=== PATIENT | female | born 1945 | race Caucasian/White ===

== ENCOUNTER 2017-02-14 06:10 | Inpatient (IN) | payer MEDICARE, BC ==
--- NOTE | 2017-02-05 00:53 | HP ---
HISTORY AND PHYSICAL: DATE OF SURGERY: 02/14/17 ATTENDING PHYSICIAN: Dr. Leon * (DICTATED BY GABRIELLE PONCE) PROCEDURE: Left total shoulder replacement. CHIEF COMPLAINT/REASON FOR VISIT: Left-sided osteoarthritis. HISTORY OF PRESENT ILLNESS: Ms. Dyson is a very pleasant 71-year-old female, who presents today for history and physical examination prior to undergoing a left total shoulder replacement on 02/14/[address] Leon. In brief, the patient has had a longstanding history of osteoarthritis of his shoulder and has failed conservative methods such as steroid injections, NSAIDs, and activity and has elected to undergo a left total shoulder replacement by Dr. Leon. PAST MEDICAL HISTORY: Positive for: 1. Osteoarthritis, left shoulder. 2. Insomnia. PAST SURGICAL HISTORY: 1. Left carpal tunnel surgery approximately 20 years ago. 2. Tonsils and adenoids. 3. Appendectomy as a child. MEDICATIONS: 1. Ambien 5 mg 1 tablet p.o. q.h.s. p.r.n. 2. Ibuprofen 600 mg 1 tablet p.o. daily p.r.n. 3. Trazodone 50 mg 1 tablet q.h.s. p.r.n. ALLERGIES: No known drug allergies. FAMILY MEDICAL HISTORY: Father due to pulmonary embolism with history of CAD. Mother due to colon cancer, at age 94. SOCIAL HISTORY: The patient is retired. She is a former smoker and denies IV drug use. She is currently and living with her spouse. Approximately 1 to 2 glasses of faiza in the evening. REVIEW OF SYSTEMS: General: Negative for fevers, chills, or night sweats. No difficulty with anesthesia. HEENT: Negative for headache, lightheadedness, or syncopal episodes. Integument: Negative for abrasions, lesions. No open wounds or sores. Cardiothoracic: Negative for chest pain, palpitations, or edema. Negative for hypertension. Pulmonary: Negative for shortness of breath , cough, or COPD. GI: Negative for nausea, vomiting, constipation, diarrhea, or GERD. : Negative for nocturia, urinary frequency, urgency. No history of UTIs or kidney problems. Musculoskeletal: Positive for left shoulder osteoarthritis. Positive for right shoulder arthritis. Positive for right ____ __ osteoarthritis. Neuro: Negative for paresthesias, numbness. No history of seizure, stroke, or epilepsy. Endocrine: Negative for diabetes. Negative for thyroid disease. Hematologic: Negative for easy bruising, anemia. No excessive bleeding. No history of DVTs or PEs. Infectious Disease: No history of MRSA, VRE, hepatitis, or HIV. PHYSICAL EXAMINATION GENERAL: Well appearing, no acute distress. Alert and oriented female, appearing younger than stated age. VITAL SIGNS: Height 65 inches, weight 154 pounds. Blood pressure 124/66, respirations 18, temperature 97.7. BMI 25.6. HEENT: Normocephalic, atraumatic. EOMI. PULMONARY: Clear to auscultation bilaterally. No crackles, rhonchi, or wheezes. CARDIAC: Regular rate and rhythm. No murmurs, gallops, or rubs. ABDOMEN: Soft, nontender, nondistended. Negative CVA tenderness bilaterally. NEUROLOGIC: Alert and oriented x3. Cranial nerves grossly intact. Sensation intact to bilateral touch in lower and upper extremities. MUSCULOSKELETAL: Left side with diffuse tenderness to palpation throughout the shoulder joints, increased in the anterior position. Elementary Math Tutor strength equal bilaterally, although strength with flexion and extension equal bilaterally. Good strength with adduction; however, decreased strength with abduction on the left, approximately 3/5 compared to the right. Shoulder range of motion, forward flexion to approximately 130 degrees, abduction to roughly 90 degrees. Radial ulnar pulses 2+ bilaterally. Sensation intact to light touch from fingers up to shoulder. ASSESSMENT: Osteoarthritis on the left shoulder. PLAN: The patient has elected to undergo a left total shoulder replacement due to increase in pain and decrease in function. She underwent preoperative clearance by her family practitioner, Vanessa Dunlap and was cleared for surgery. She had no other questions or concerns with regards to today's examination; however, will follow up with us if any do arise. GABRIELLE PONCE [id number]/[facility] #: [id number] [place]
[~2017-02-14 06:10] MED LIST: Buffered Lidocaine 0.9% SYRIN* 5 ML/SYR SYRINGE INTRADERM ONE; Dexamethasone IV* 4 MG/ML 1 ML (4 MG) IV SLOW PU ONE; Famotidine IV* 10 MG/ML 2 ML (20 mg) IV ONE
[2017-02-14] MEDS ORDERED: Buffered Lidocaine 0.9% SYRIN* 5 ML/SYR SYRINGE ONE (06:28)
[2017-02-14] MEDS ORDERED: ceFAZolin 2 GM PREMIX (*) 2 GM/50 ML BAG IVPB ONE (06:28)
[2017-02-14] MEDS ORDERED: Dexamethasone IV* 4 MG/ML 1 ML (4 MG) ONE (06:28)
[2017-02-14] MEDS ORDERED: Famotidine IV* 10 MG/ML 2 ML (20 mg) ONE (06:28)
[2017-02-14] MEDS ORDERED: Rocuronium* 10 MG/ML VIAL ONE (06:47)
[2017-02-14] MEDS ORDERED: Midazolam* 1 MG/ML 2 ML VIAL (2 MG) ONE (06:47)
[2017-02-14] MEDS ORDERED: Propofol* 10 MG/ML 20 ML BTL IV PUSH ONE (06:47)
[2017-02-14] MEDS ORDERED: fentaNYL* 50 MCG/ML 2 ML VIAL (100 MCG VIAL) ONE ×2 (06:47→09:18)
[2017-02-14] MEDS ORDERED: Lidocaine 2% PF * 5 ML VIAL ONE (06:47)
[2017-02-14] MEDS ORDERED: ROPIVACAINE 5 MG/ML 30 ML BTL (0.5%) ONE (06:52)
[2017-02-14] MEDS ORDERED: Bupivacaine 0.25% SDV* 30 ML ONE (07:17)
[2017-02-14] MEDS ORDERED: Bupivacaine 0.5% SDV PF* 30 ML VIAL ONE (07:17)
[2017-02-14] MEDS ORDERED: Lidocaine 1% MPF wEPI 200,000* 30 ML SDV ONE (07:27)
[2017-02-14] MEDS ORDERED: EPHEDrine (Pressors)* 50 MG/ML VIAL ONE (07:54)
[2017-02-14] MEDS ORDERED: Phenylephrine IV* 40 MCG/ML 10 ML SYRINGE ONE (07:57)
[2017-02-14] MEDS ORDERED: Phenylephrine INJ* 10 MG/ML 1 ML VIAL (10 MG) ONE (08:09)
[2017-02-14] MEDS ORDERED: PROCHLORPERAZINE INJ 5 MG/ML 2 ML VIAL IV PRN (08:42)
[2017-02-14] MEDS ORDERED: fentaNYL* 50 MCG/ML 2 ML VIAL (100 MCG VIAL) IV PRN (08:42)
[2017-02-14] MEDS ORDERED: oxyCODONE/Acetamin 5/325 MG* TAB PO PRN (08:42)
[2017-02-14] MEDS ORDERED: HYDROcodone/ACETAMIN 5-325 MG* 1 TAB PO PRN (08:42)
[2017-02-14] MEDS ORDERED: Ondansetron INJ* 2 MG/ML VIAL ONE (09:19)
[2017-02-14] MEDS ORDERED: Metoprolol Tartrate IV* 1 MG/ML 5 ML VIAL ONE (09:55)
[2017-02-14] MEDS ORDERED: Ondansetron TAB* 4 MG PO PRN (11:16)
[2017-02-14] MEDS ORDERED: Morphine INJ* 4 MG/ML 1 ML CARPUJECT IV PRN (11:16)
[2017-02-14] MEDS ORDERED: diPHENhydraMINE IV* 50 MG/ML 1 ml VIAL (BENADRYL) IV PRN (11:16)
[2017-02-14] MEDS ORDERED: Ondansetron INJ* 2 MG/ML VIAL IV PRN (11:16)
[2017-02-14] MEDS ORDERED: Acetaminophen TAB* 325 MG PO PRN (11:16)
[2017-02-14] MEDS ORDERED: Polyethylene Glycol 3350* 17 GM PACKET PO PRN (11:16)
[2017-02-14] MEDS ORDERED: Bisacodyl SUPP* 10 MG SUPP PR PRN (11:16)
[2017-02-14] MEDS ORDERED: Magnesium Hydroxide LIQ* 30 ML UDC PO PRN (11:16)
[2017-02-14] MEDS ORDERED: traZODone TAB* 50 MG TAB PO PRN (11:16)
--- NOTE | 2017-02-14 12:34 | RAD ---
INDICATION: Status post total left shoulder replacement surgery. TECHNIQUE: 2 views of the left shoulder were obtained. FINDINGS: The patient is status post total left shoulder replacement surgery. The bones and prostheses are in normal alignment. No fracture is seen. IMPRESSION: STATUS POST TOTAL LEFT SHOULDER REPLACEMENT SURGERY.
[2017-02-14] MEDS: D5W 1/2 NS 1000 ML BAG* 1,000 ML IV SCH ×2 (13:26→23:59)
[2017-02-14] MEDS: ceFAZolin 1 GM VIAL(*) 1 GM in NS 0.9% 50 ML* 50 ML IVPB SCH (16:38)
[2017-02-14] MEDS ORDERED: guaiFENesin LIQ* 100 MG/5 ML UDC PO PRN (18:56)
[2017-02-14] MEDS ORDERED: Zolpidem TAB* 5 MG PO PRN (19:21)
[2017-02-14] MEDS: Docusate CAP* 100 MG PO SCH (20:58)
[2017-02-14] MEDS: Ferrous Sulfate TAB* 325 MG PO SCH (20:58)
[2017-02-15] MEDS: ceFAZolin 1 GM VIAL(*) 1 GM in NS 0.9% 50 ML* 50 ML IVPB SCH ×2 (00:10→08:15)
[2017-02-15] MEDS: oxyCODONE TAB* 5 MG TAB PO PRN ×4 (01:57→18:26)
--- NOTE | 2017-02-15 02:19 | CONS ---
HOSPITAL MEDICINE CONSULTATION REPORT: DATE OF CONSULT: 02/14/17 ATTENDING PHYSICIAN: Dr. Leon. CONSULTING PHYSICIAN: Dr. Giovana Lea (dictation provided by Shantel Dasilva NP) . REASON FOR CONSULT: Chest congestion. HISTORY OF PRESENT ILLNESS: Ms. Dyson is a 71-year-old female with past medical history of shoulder osteoarthritis, who presents to the hospital today for a planned left total shoulder replacement with Dr. Leon. Please see dictated H and P from GABRIELLE Ceron, for complete details. In brief, the patient had ongoing pain and failed conservative measures and therefore opted for shoulder replacement. In the postoperative period, nursing staff had noted that the patient complained of chest congestion and cough and therefore Hospital Medicine was called regarding consultation. The patient states that she is doing quite well. She does confirm that she feels congestion in her chest but she is coughing well and bringing up clear to white sputum. She reported that prior to coming in for surgery that she has had no acute illnesses , without cough, chest pain, etc. She has no history of coronary artery disease , no history of COPD, asthma, or recent lung infections. PAST MEDICAL HISTORY: 1. Osteoarthritis, left shoulder. 2. Insomnia. PAST SURGICAL HISTORY: 1. Left carpal tunnel surgery approximately 20 years ago. 2. Tonsils and adenoids removed. 3. Appendectomy as a child. MEDICATIONS: Outpatient are: 1. Ambien 5 mg 1 tab p.o. q.h.s. p.r.n. 2. Ibuprofen 600 mg 1 tab p.o. daily p.r.n. 3. Trazodone 50 mg 1 tab q.h.s. p.r.n. ALLERGIES: No known drug allergies. FAMILY HISTORY: Her father did have a pulmonary embolism and he had a history of coronary artery disease. Mother due to colon cancer at the age of 94. SOCIAL HISTORY: The patient is a former smoker, very long time ago. She denies any history of illicit drug use. She drinks 1 to 2 glasses of faiza in the evenings. REVIEW OF SYSTEMS: General: No fevers, chills, or unintended weight loss. Cardiac: No chest pain or edema. Respiratory: Positive for cough, positive for feeling of chest congestion. No shortness of breath. GI: No nausea, vomiting, diarrhea, abdominal pain. : No gross hematuria, dysuria. Neuro: No focal weakness or sensory loss. Eyes: No visual complaints. ENT: No dysphagia. Musculoskeletal: No arthralgias or myalgias. Skin: No rashes, lesions. Psych: No depression or anxiety. PHYSICAL EXAM: Vital Signs: Temperature 97.3, pulse rate 97, respiratory rate 16, O2 saturations 94% on room air, blood pressure 96/54. General: Ms. Dyson is sitting up in the bed. She is in no acute distress. Neuro: She is alert. She is oriented x3. She moves all extremities equally. There is no facial asymmetry or focal weakness. Extraocular movements are intact. Heart: S1, S2. No murmur, rub, or gallop and regular. Lungs are clear to auscultation bilaterally with no accessory muscle use and good aeration. Abdomen: Soft, nontender with bowel sounds positive x4. Extremities: No cyanosis or edema. Skin: Intact. LABORATORY DATA: Preoperatively on 01/28/17, sodium 140, potassium 4.4, chloride 105, serum bicarbonate 27, BUN 17, creatinine 1.00, glucose 89. WBC 5.0, hemoglobin 14.7, hematocrit 43, and platelet count 231. IMPRESSION AND PLAN: Ms. Dyson is a 71-year-old female with no significant past medical history, who presents today to the hospital for a planned left total shoulder replacement. In the immediate postoperative period, she has had chest congestion and Hospital Medicine was called regarding consultation. Our recommendations are as follows: 1. Status post left total shoulder replacement. Management, we will leave it to Ortho. 2. Chest congestion. The patient seems to have a very mild chest congestion. Her lungs are clear to auscultation. She has no fever. She is not tachypneic. She is not hypoxic. She states that she feels that she is able to mobilize clear to white sputum. Our plan is to add guaifenesin p.r.n. 3. DVT prophylaxis. Per Ortho. 4. Code status. Full code. TIME SPENT: Approximately 45 minutes was spent in the consultation of this patient, more than half the time was spent with patient at the bedside reviewing the events leading thus far during the hospitalization, performing physical examination, reviewing my plan of care. SHANTEL VINAYAK, WATER POLLUTION SCIENTIST [id number]/[facility] #: [id number] [place]
--- NOTE | 2017-02-15 04:00 | OP ---
DATE OF OPERATION: 02/14/17 - ROOM #343 DATE OF : 47 SURGEON: Sean Leon MD ASSISTANTS: 1. Taylor Brumfield RPA 2. GABRIELLE Willams ANESTHESIOLOGIST: Lizbeth Fallon MD ANESTHESIA: Regional and general. PRE-OP DIAGNOSIS: Osteoarthritis, left shoulder. POST-OP DIAGNOSIS: Osteoarthritis, left shoulder. OPERATIVE PROCEDURE: Left total shoulder arthroplasty. INDICATIONS: Ms. Dyson is a 71-year-old female who has had a long history of troubles with her left shoulder. It initially had been much lower level where she had still been able to do activities specifically gardening, but this past summer, the shoulder had really become quite limiting as with just normal ADLs. She had such pain that she could not sleep at night, and all of this was quite limiting. She had been treated conservatively with anti-inflammatories as well as a steroid injection, but did not get lasting relief with this. I discussed with her that total shoulder arthroplasty should work well to decrease her pain and improve her function. Risks of surgery such as infection , scar formation, stiffness, continued pain, hardware failure, and neurovascular injury were some of the risks discussed. She had been declared medically optimized and wished to proceed. ESTIMATED BLOOD LOSS: 50 cc. COMPLICATIONS: None. HARDWARE: [employer] small glenoid with 2 screws, 19-mm stem medium trauma body with 44-mm head. DESCRIPTION OF PROCEDURE: The patient had a block placed in the holding area and was brought to the OR. General anesthesia was then established. She was then sat up in a beach chair position, care was taken to ensure that her right arm was nicely padded and that the cubital tunnel was nice and free. Left shoulder area was prepped and then draped. Skin running from the coracoid process down towards the humerus was then infiltrated using a 50:50 mixture of 0.5% Marcaine with 1% lidocaine with epinephrine. Incision was made and was carried down through the skin and subcutaneous tissues. Small bleeders encountered were ligated using electrocautery. Blunt dissection was carried down to the deltoid and full thickness skin flaps were raised. Coming a little medially, it could be seen her cephalic vein and fat stripe could be seen and dissection was carried down that way. Vein ended up being carried laterally, but during the reaming, there was some bleeding from the vein and vein was suture ligated. Nice exposure anteriorly was obtained and some of the bursal tissue was taken down. Trapezius strap muscles were then freed a little bit and it could be seen where she had the three sisters coming upwards, which I believe delineated the inferior border of her subscapularis tendon. Bicipital groove was identified and then taking an osteotome, a flake of bone was taken, lifting most of the subscap attachment and peeling back. The sac gave nice exposure to the humeral head. Four #2 Ethibond sutures were placed and Metzenbaum scissors was used to help free the rotator cuff some until I had a nice balance. With taking down the rotator cuff attachment, the capsule came with that and the shoulder joint opened quite nicely. She had the large osteophyte inferiorly and rather than start to release capsule, I came where there was clearly osteophyte and started to resect osteophyte from the anterior inferior aspect, I then came around this way, so that this actually gave me quite a bit of flexibility along the inferior capsule so that I did not have to release or push much inferiorly as her spur was over 2 cm in size. This came all around, all the way towards the back side. Awl was then used to open the very top of the head and intramedullary guide was placed. Outrigger was assembled and adjusted until it appeared we have taken nice cut from the humeral head. Arm was set at 30 degrees and cutting guide was pinned into place. Intramedullary guide was removed and head was nicely resected. It could be seen where there was still osteophyte present and this was nibbled down along the proximal humerus. End cap was placed and pickle fork was then placed behind the glenoid as well as the tab by the front and nice exposure was obtained. Dustin was used to grasp the labrum and labrum was sharply taken down posteriorly, which gave me exposure from the back to the front and I could easily feel from top to bottom. Guide was placed and it felt like I was nicely in the center and guidewire was placed. Guidewire was perhaps a millimeter high , but I thought this was good as there was probably a spur inferiorly on the glenoid. Drill was run and nice bony recess was obtained and a reamer was also run along with the drill. Small glenoid was called for and impacted into place. It was nicely seated. Drill holes were run and a 20-mm screw was placed superiorly and inferiorly and a wonderful bite was obtained with both. Polyethylene liner was then snapped into place. Attention was returned to the proximal humerus. Positioning was difficult and without the 2 assistants, the case would not have been possible. Taylor Brumfield and Tabitha Deandre were present from the beginning, helping with draping and were essential for positioning and implantation of the implants. They were also there through closure as well. Eventually, we were able to get good exposure so that I could get the reamers to come downwards along the shaft and I had templated her for about a 15, but the 15 still countersunk some. I continued upwards until I had a little bit of chatter and the 19 broach seemed to have the nice bite along with some chatter. Medium trauma body along with a 19-mm finned stem was then impacted into place. She was then trialed with a 44-mm head and I liked her stability as well as her motion. 44-mm head was then impacted into place. Shoulder was copiously pulse lavaged. Long head of the biceps had been preserved through the case and was replaced down into the bicipital groove. Rotator cuff was repaired back to where I had taken the flake of bone off anteriorly and several additional #2 Ethibond sutures were placed to close the rotator interval as well. She was nice and stable and I could shift her nicely and bring the arm up and with external rotation, rotator cuff did not strain at all. Wound was again copiously pulse lavaged. Deltopectoral fascia was loosely reapproximated using 2-0 Vicryl sutures and this was when the cephalic vein was sewn in. The wound was again copiously pulse lavaged and subcutaneous tissues were reapproximated using 2-0 Vicryl, skin was closed using a running Monocryl. Sterile dressing and a sling were applied in the OR. The patient had the LMA removed in the OR, was stable on transfer to the recovery room. [id number]/[facility] #: [id number] [place]
[2017-02-15] MEDS: oxyCODONE/Acetamin 5/325 MG* TAB PO PRN ×4 (04:59→20:20)
[2017-02-15 05:39] LABS: Hematocrit 30 % (35-47); Hemoglobin 10.3 g/dl (12.0-16.0)
[2017-02-15 05:53] LABS: BUN/Creatinine Ratio 17.6 (8-20); Calcium 8.1 mg/dL (8.6-10.3); EGFR African American 99.8 (>60); EGFR Non-African American 77.6 (>60); Potassium 3.8 mmol/L (3.5-5.0)
--- NOTE | 2017-02-15 08:11 | PN ---
Progress Note - Progress Note Date of Service: 02/15/17 SOAP: Subjective: []Patient seen at bedside while working with physical therapy. Her pain is well controlled. Denies chest pain, SOB, dizziness or nausea. The sensation that "something was stuck in her chest" has resolved entirely and she was seen by the hospitalist service last night. Objective: [] Vital Signs Temp 98.1 F 02/15/17 07:11 Pulse 92 02/15/17 07:11 Resp 20 02/15/17 07:20 BP 102/57 02/15/17 07:11 Pulse Ox 99 02/15/17 07:20 Intake & Output 02/14/17 02/15/17 02/15/17 18:59 06:59 18:59 Intake Total 2170 1820 Output Total 900 Balance 2170 920 Intake: IV Fluids 205 980 D5W 03/22 NS 980 LR 2000 NS 50ML, Cefazolin 2G 50 Oral 120 840 Output: Urine 900 Other: Estimated Void Medium # Voids 1 Laboratory Last Values Hgb 10.3 g/dl (12.0-16.0) L 02/15/17 04:37 Hct 30 % (35-47) L 02/15/17 04:37 INR (Anticoag Therapy) 0.85 (0.89-1.11) L 02/14/17 06:37 APTT 27.4 seconds (26.0-36.3) 02/14/17 06:37 Sodium 136 mmol/L (133-145) 02/15/17 04:37 Potassium 3.8 mmol/L (3.5-5.0) 02/15/17 04:37 Chloride 107 mmol/L (101-111) 02/15/17 04:37 Carbon Dioxide 24 mmol/L (22-32) 02/15/17 04:37 Anion Gap 5 mmol/L (2-11) 02/15/17 04:37 BUN 13 mg/dL (6-24) 02/15/17 04:37 Creatinine 0.74 mg/dL (0.51-0.95) 02/15/17 04:37 Est GFR ( Amer) 99.8 (>60) 02/15/17 04:37 Est GFR (Non-Af Amer) 77.6 (>60) 02/15/17 04:37 BUN/Creatinine Ratio 17.6 (8-20) 02/15/17 04:37 Glucose 155 mg/dL (70-100) H 02/15/17 04:37 Calcium 8.1 mg/dL (8.6-10.3) L 02/15/17 04:37 General:Well appearing, no acute distress LUE: Sensation intact to light touch throughout, notes slight decrease in sensation of 4th and 4th digits. Motor function intact throughout digits. Brisk capillary refill distally. Radial pulse 2+. Dressing CDI. Assessment: []s/p left total shoulder 02/14 Dr Leon Plan: []PT/OT Sling at all times aside from gentle passive ROM, pendulum Heparin in house, ASA BID at home Hosp consult for chest congestion complete.
[2017-02-15] MEDS: Ferrous Sulfate TAB* 325 MG PO SCH ×2 (08:14→20:18)
[2017-02-15] MEDS: Vitamin THERAPEUTIC TAB PO SCH (08:14)
[2017-02-15] MEDS: Docusate CAP* 100 MG PO SCH ×2 (08:14→20:18)
[2017-02-15] MEDS: Heparin VIAL(*) 5000 UNITS/ML VIAL (FIVE THOUSAND) SUBCUT SCH ×2 (15:25→21:37)
[2017-02-16] MEDS: oxyCODONE TAB* 5 MG TAB PO PRN (00:10)
[2017-02-16] MEDS: Heparin VIAL(*) 5000 UNITS/ML VIAL (FIVE THOUSAND) SUBCUT SCH (05:37)
[2017-02-16] MEDS: oxyCODONE/Acetamin 5/325 MG* TAB PO PRN ×3 (05:38→12:24)
[2017-02-16 06:19] LABS: Hematocrit 29 % (35-47); Hemoglobin 10.1 g/dl (12.0-16.0)
[2017-02-16] MEDS: Docusate CAP* 100 MG PO SCH (08:38)
[2017-02-16] MEDS: Vitamin THERAPEUTIC TAB PO SCH (08:38)
[2017-02-16] MEDS: Ferrous Sulfate TAB* 325 MG PO SCH (08:38)
[2017-02-16 12:58] VITALS: BP 94/57
--- NOTE | 2017-02-17 10:39 | DS ---
AMENDED REPORT NOW INCLUDES COSIGNER DESIGNATION - ESIGNED BEFORE ADJUSTMENT DISCHARGE SUMMARY: DATE OF OPERATION/ADMISSION: 02/14/17 DATE OF DISCHARGE: 02/16/17 PROVIDER: Sean Leon MD * (DICTATED BY GABRIELLE VILLALTA) SURGICAL ASSISTANTS: GABRIELLE Ceron, and GABRIELLE Willams PREOPERATIVE DIAGNOSIS: Osteoarthritis of the left shoulder. OPERATIVE PROCEDURE: Left total shoulder arthroplasty. HISTORY: Ms. Dyson is a 71-year-old female who has had a long history with trouble with her left shoulder. This past summer the shoulder became quite limiting to her ADLs. She was unable to sleep at night. She has been treated conservatively with antiinflammatories, a steroid injection, but did not get lasting relief. She agreed to a total shoulder arthroplasty. HOSPITAL COURSE: The patient was admitted to [facility] on 02/14/17 when she underwent a left total shoulder arthroplasty by Dr. Leon with no complications. Throughout her hospital stay her vital signs remained stable and she was afebrile. On postop day 1 her hemoglobin was 10.3, hematocrit was 30. She participated in physical therapy. On postop day #1 she stated that she felt as though something was stuck in her chest, a feeling that she had had in the past, but this was stronger. The hospital service was consulted and prescribed guaifenesin which was not needed as the patient improved spontaneously. DVT/PE prophylaxis with heparin. On postop day 2 hemoglobin was 10.1, hematocrit was 29. The patient was well-appearing, she was in no acute distress. Sensation was intact to light touch throughout her left upper extremity. Her 4th and 5th digit on both postop day 1 and postop day 2 had slightly decreased sensation though it was present. On postop day 2 it was much improved. On postop day 1 she had full range of motion throughout her left digits with brisk capillary refill distally. Radial pulse was 2+ and her dressing was changed by Dr. Leon without complications. The patient was determined to be medically and orthopedically stable to be discharged to home at this time. DISCHARGE MEDICATIONS: Her discharge medications: 1. Acetaminophen 325 mg to 650 mg p.o. q.4 hours p.r.n. may take up to 4000 mg per day from all sources. 2. Colace 100 mg p.o. b.i.d. p.r.n. 3. Percocet 5/325 mg one tab p.o. q. 4 hours, may take 1 extra tablet as often as every 4 hours as needed, max daily dose of 10. 4. Oxycodone 5 mg one tab p.o. t.i.d. p.r.n., max daily dose of 3. 5. The patient also has Ambien 10 mg p.r.n. bedtime which I have asked her not to take until she is done taking her narcotic pain medication. 6. She also has trazodone 50 mg p.o. at bedtime p.r.n. and the same goes for this. She should not be taking any sleeping medication while she is on these narcotic pain meds. DISCHARGE CONDITION: Stable. DISCHARGE INSTRUCTIONS: Nonweightbearing to the left arm, able to remove sling for showering. As shown no active range of motion. Wound care; okay to shower on postop day 3. Do not bathe, swim, or submerge wound. Use gentle soap and pat dry. Cover with gauze and paper tape. Please call the orthopedic office for increased drainage, redness, increased pain or fever. Go to the emergency room with shortness of breath or chest pain. Diet: Regular diet as tolerated. Continue to use stool softeners as needed to produce bowel movement. If she has no bowel movement within 48 hours, please call the orthopedic office. Visiting home nurse will remove suture tags in 10 to 12 days and do wound checks. Pain control is with Percocet 5/325 one tablet every 4 hours as needed , may take one extra tablet every 4 hours as needed for pain max of 10 per day. Oxycodone 5 mg for severe breakthrough pain, may use this as often as every 4 hours but no more than 3 in a day. Please limit use of oxycodone as much as possible. This is to be used only for breakthrough pain. Please avoid using sleep medications as able while on narcotics. Follow up with Dr. Leon on . GABRIELLE VILLALTA [id number]/[facility] #: [id number] [place]
== END 2017-02-16 13:15 | disposition home health service (06) | DRG 483 ==
LOC: AA 06:10 → SSU 13:00
PROVIDERS: ADMIT Orthopaedic Surgery; ATTEND Orthopaedic Surgery
PROC: 0RRK0JZ Replacement of Left Shoulder Joint with Synthetic Substitute, Open Approach (ICD-10-PCS; principal; 2017-02-14 07:30)
DX: M19.012 Primary osteoarthritis, left shoulder (principal); G47.00 Insomnia, unspecified; M25.712 Osteophyte, left shoulder; R09.89 Other specified symptoms and signs involving the circulatory and respiratory systems; Z80.0 Family history of malignant neoplasm of digestive organs; Z82.49 Family history of ischemic heart disease and other diseases of the circulatory system; Z83.3 Family history of diabetes mellitus; Z83.6 Family history of other diseases of the respiratory system; Z87.891 Personal history of nicotine dependence
CPT/HCPCS: 36415; 80048; 85014; 85018; 85610; 85730; 88304; 88311; 94760; A9270-GY; C1713; C1776; J0690; J1100; J1644; J2001; J2250; J2270; J2405; J2704; J2795; J3010; J3490